=== PATIENT | female | born 1990 | race Caucasian/White ===

== ENCOUNTER 2019-08-11 17:56 | Emergency (ER) | payer MEDICAID ==
[~2019-08-11] VITALS: Ht 152.4 cm; Wt 58.5 kg
[2019-08-11 18:03] VITALS: BP_SYST 127
--- NOTE | 2019-08-11 18:10 | NUR ---
Patient triaged and placed in waiting room. VSS and patient appears in no acute distress at this time. Accompanied by self, awaiting available bed, and MD notified of need for MSE.
--- NOTE | 2019-08-11 18:22 | NUR ---
ER CURTIS Gonzalez examining patient.
--- NOTE | 2019-08-11 18:22 | NUR ---
Patient to ER bed hallway to [facility] [place] for evaluation. Side rails up. Report given to [facility] Call.
--- NOTE | 2019-08-11 18:25 | NUR ---
Patient ambulated to radiology, accompanied by furniture repair technician.
--- NOTE | 2019-08-11 18:31 | NUR ---
Patient presented to ER C/O right thump pain. Patient A&Ox4, skin pink and warm, ambulatory to ER, pain 12/04, denies N/V/D. Patient states she inguried right thumb today while placing child in infant car seat. Patient states right thumb pain from depressing release button on car seat.
[2019-08-11 19:33] VITALS: BP_SYST 124
--- NOTE | 2019-08-11 19:33 | NUR ---
Patient given written and verbal discharge instructions and verbalizes understanding. ER ARCHITECTURE INTERN Lisa discussed with patient the results and treatment provided. Patient in stable condition. ID arm band removed. Rx of Motrin given. Patient educated on pain management and to follow up with PMD. Pain Scale 0. Opportunity for questions provided and answered. Medication side effect fact sheet provided.
== END 2019-08-11 19:33 | disposition home or self-care (01) ==
LOC: SED 17:56
DX: S63.641A Sprain of metacarpophalangeal joint of right thumb, initial encounter (principal); R03.0 Elevated blood-pressure reading, without diagnosis of hypertension; X58.XXXA Exposure to other specified factors, initial encounter; Y93.89 Activity, other specified; Y92.810 Car as the place of occurrence of the external cause; Y99.8 Other external cause status
CPT/HCPCS: 73140-TC; 99283